=== PATIENT | female | born 2000 | race Caucasian/White ===

== ENCOUNTER 2021-08-12 17:52 | Outpatient (CLI) | payer BC, OTHER ==
[2021-08-12 19:51] LABS: HEMOGLOBIN 11.5 gm/dl (12.3-15.3); RED BLOOD COUNT 4.02 M/UL (4.00-5.10); WHITE BLOOD COUNT 11.6 K/UL (4.5-11.0)
[2021-08-12 20:27] LABS: BUN/CREATININE RATIO 11 (0-10)
== END 2021-08-12 23:11 | disposition home or self-care (01) ==
LOC: GENOP 17:52
PROVIDERS: Obstetrics & Gynecology
DX: O47.03 False labor before 37 completed weeks of gestation, third trimester (principal); O23.43 Unspecified infection of urinary tract in pregnancy, third trimester; O10.913 Unspecified pre-existing hypertension complicating pregnancy, third trimester; O99.891 Other specified diseases and conditions complicating pregnancy; N39.0 Urinary tract infection, site not specified; M54.50 Low back pain, unspecified; Z3A.36 36 weeks gestation of pregnancy; O24.410 Gestational diabetes mellitus in pregnancy, diet controlled
CPT/HCPCS: 80053; 81001; 82570; 82962; 83615; 84156; 84550; 85025

== ENCOUNTER 2021-08-15 16:18 | Inpatient (IN) | payer BC, OTHER ==
[~2021-08-15] VITALS: Ht 167.6 cm; Wt 118.8 kg
[2021-08-15 16:54] LABS: HEMOGLOBIN 11.6 gm/dl (12.3-15.3); RED BLOOD COUNT 3.85 M/UL (4.00-5.10); WHITE BLOOD COUNT 10.9 K/UL (4.5-11.0)
[2021-08-15] MEDS ORDERED: PRENATAL TABLE1 EAC1 PO (18:15)
[2021-08-15] MEDS ORDERED: AUGMENTIN 875-1 EACH PO (18:16)
[2021-08-15] MEDS ORDERED: LABETALOL HCL100 MG PO (18:16)
[2021-08-17 08:14] LABS: HIV AB/P24 AG SCREEN Non Reactive (Non Reactive)
[2021-08-17] MEDS ORDERED: PERCOCET 5/325 T1 EA PO (18:13)
[2021-08-17] MEDS ORDERED: DULCOLAX STOOL100 MG PO (18:13)
[2021-08-17] MEDS ORDERED: IBUPROFEN800 MG PO (18:13)
[2021-08-17] MEDS ORDERED: HEMOCYTE324 MG PO (18:13)
== END 2021-08-19 12:55 | disposition home or self-care (01) | DRG 788 ==
LOC: GENOP 16:18 → OB 17:34
PROVIDERS: Obstetrics & Gynecology; ADMIT Obstetrics & Gynecology
PROC: 10907ZC Drainage of Amniotic Fluid, Therapeutic from Products of Conception, Via Natural or Artificial Opening (ICD-10-PCS; 2021-08-15)
PROC: 4A1HXCZ Monitoring of Products of Conception, Cardiac Rate, External Approach (ICD-10-PCS; 2021-08-15)
PROC: 10D00Z1 Extraction of Products of Conception, Low, Open Approach (ICD-10-PCS; principal; 2021-08-17 17:32)
DX: O13.4 Gestational [pregnancy-induced] hypertension without significant proteinuria, complicating childbirth (principal); Z37.0 Single live birth; O24.420 Gestational diabetes mellitus in childbirth, diet controlled; Z3A.37 37 weeks gestation of pregnancy; Z20.822 Contact with and (suspected) exposure to COVID-19; Z87.440 Personal history of urinary (tract) infections; O62.1 Secondary uterine inertia
CPT/HCPCS: 36415; 81001; 82570; 82962; 84156; 85014; 85018; 85025; 87389; C9113; G0378; J0690; J1170; J1885; J2590; J2795; J3010; J7030; J7120; U0002